=== PATIENT | female | born 1930 | race Caucasian/White ===

== ENCOUNTER 2016-10-08 17:45 | Observation (INO) | payer MEDICARE, OTHER ==
[~2016-10-08] VITALS: Ht 162.6 cm; Wt 60.0 kg
[~2016-10-08 17:45] MED LIST: HYDR-3533 PO; [UNRECOGNIZED DRUG - REMARK]; bp med
[2016-10-08] MEDS ORDERED: SODIUM CHLOR 0.9% 1000 ML INJ 1,000 ML IV SCH (18:11)
[2016-10-08] MEDS ORDERED: SODIUM CHLORIDE 0.9% FLUSH 5 ML FLUSH IVF PRN (18:15)
[2016-10-08 18:32] LABS: AUTOMATED NEUTROPHIL # 4.8 TH/MM3 (1.8-7.7); BASOPHIL # 0.1 TH/MM3 (0-0.2); BASOPHIL % 0.7 % (0.0-2.0); EOSINOPHIL # 0.2 TH/MM3 (0-0.4); EOSINOPHIL % 2.1 % (0.0-4.0); HEMATOCRIT 37.5 % (35.0-46.0); HEMO FLAGS DIFF FINAL; LYMPH % 28.9 % (9.0-44.0); LYMPHOCYTE # 2.3 TH/MM3 (1.0-4.8); MEAN CELL VOLUME 94.8 FL (80.0-100.0); MEAN CORPUSCULAR HEMOGLOBIN 31.6 PG (27.0-34.0); MEAN CORPUSCULAR HGB CONC 33.3 % (32.0-36.0); MONO % 7.3 % (0.0-8.0); PLATELET COUNT 363 TH/MM3 (150-450); RED BLOOD COUNT 3.95 MIL/MM3 (4.00-5.30); RED CELL DISTRIBUTION WIDTH 14.6 % (11.6-17.2); WHITE BLOOD COUNT 7.9 TH/MM3 (4.0-11.0)
[2016-10-08 18:41] VITALS: BP 120/64; PULSE 76; RESP 16; TEMP 98.7; O2SAT 98
[2016-10-08 18:43] LABS: APTT (PATIENT) 25.5 SEC (24.3-30.1); PROTHROMBIN TIME - PATIENT 10.5 SEC (9.8-11.6)
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
[2016-10-08 18:57] LABS: ALT (GPT) 34 U/L (10-53); ANION GAP 9 MEQ/L (5-15); AST (GOT) 12 U/L (15-37); BICARBONATE 21.9 MEQ/L (21.0-32.0); BLOOD UREA NITROGEN 45 MG/DL (7-18); CHLORIDE 111 MEQ/L (98-107); POTASSIUM 4.5 MEQ/L (3.5-5.1); SODIUM (NA) 142 MEQ/L (136-145)
[2016-10-08 19:00] LABS: ALKALINE PHOSPHATASE 129 U/L (45-117); GLOMERULAR FILTRATION RATE 40 ML/MIN (>89); TOTAL BILIRUBIN ADULT 0.3 MG/DL (0.2-1.0)
[2016-10-08 19:15] LABS: CREATINE KINASE 54 U/L (26-192)
--- NOTE | 2016-10-08 19:24 | RADRPT ---
EXAM DATE/TIME: 10/08/2016 19:03 [facility] COMPARISON: No previous studies available for comparison. INDICATIONS : Evaluate for obstruction and abdomen pain. MEDICAL HISTORY : None. SURGICAL HISTORY : Hysterectomy. section. Total right hip. ENCOUNTER: Initial ACUITY: 1 day PAIN SCORE: 8/10 LOCATION: Abdomen. FINDINGS: Supine view of the abdomen was performed. The abdominal bowel gas pattern is normal. No abnormal ma sses or organomegaly is seen. The 1 cm calcified gallstone overlies the right upper quadrant. Vascula r calcifications are seen involving the splenic artery. Granulomatous calcifications are seen involvi ng the spleen. Venous calcification overlie the pelvis. An osteopenic and scoliotic spine. Right hip prosthesis partially seen. CONCLUSION: Normal bowel gas pattern. Cholelithiasis. Radhames Menon Jr., MD on October 08, 2016 at 19:22 Board Certified Radiologist. This report was verified electronically.
--- NOTE | 2016-10-08 19:31 | RADRPT ---
EXAM DATE/TIME: 10/08/2016 19:13 [facility] COMPARISON: No previous studies available for comparison. INDICATIONS : Altered mental status. RADIATION DOSE: 56.35 CTDIvol (mGy) MEDICAL HISTORY : Hypertension. SURGICAL HISTORY : None. ENCOUNTER: Initial ACUITY: 1 day PAIN SCALE: Non-responsive LOCATION: cranial TECHNIQUE: Multiple contiguous axial images were obtained of the head. Using automated exposure control and adj ustment of the mA and/or kV according to patient size, radiation dose was kept as low as reasonably a chievable to obtain optimal diagnostic quality images. FINDINGS: CEREBRUM: Area of encephalomalacia involving the right frontal lobe. The ventricles are normal for age. No lyla dence of midline shift, mass lesion, hemorrhage or acute infarction. No extra-axial fluid collection s are seen. POSTERIOR FOSSA: The cerebellum and brainstem are intact. The 4th ventricle is midline. The cerebellopontine angle i s unremarkable. EXTRACRANIAL: The visualized portion of the orbits is intact. SKULL: The calvaria is intact. No evidence of skull fracture. CONCLUSION: 1. No acute intracranial abnormality. 2. Area of encephalomalacia involving the right frontal lobe. Radhames Menon Jr., MD on October 08, 2016 at 19:28 Board Certified Radiologist. This report was verified electronically.
[2016-10-08] MEDS ORDERED: SODIUM CHLOR 0.9% 1000 ML INJ 1,000 ML IV ONE (20:15)
[2016-10-08 20:25] VITALS: BP 150/69; PULSE 69; RESP 14; TEMP 98.9; O2SAT 99
[2016-10-08] MEDS ORDERED: CYCLOBENZAPRINE HCL 10 MG TAB PO ONE (20:45)
[2016-10-08] MEDS ORDERED: ACETAMINOPHEN 325 MG TAB PO ONE (20:45)
[2016-10-08] MEDS ORDERED: LORazepam 2 MG/ML VIAL ONE (21:33)
[2016-10-08] MEDS ORDERED: HALOPERIDOL LACTATE 5 MG/ML AMP ONE (21:33)
[2016-10-08 21:34] LABS: BACTERIA, URINE MOD /hpf; BLOOD, URINE MOD (NEG); COMMENT (UR) CATH-CULTURE IND; CULTURE IF INDICATED CATH CULTURE IND; GLUCOSE,URINE 70 mg/dL (NEG); KETONE, URINE NEG (NEG); NITRITE,URINE NEG (NEG); PH, URINE 5.5 (5.0-8.5); SQUAMOUS EPITHELIAL CELL URINE 2 /hpf (0-5); URINE COLOR YELLOW (YELLW/STRAW)
--- NOTE | 2016-10-08 21:34 | RADRPT ---
EXAM DATE/TIME: 10/08/2016 21:06 [facility] COMPARISON: No previous studies available for comparison. INDICATIONS : Left side chest and rib pain. MEDICAL HISTORY : None. SURGICAL HISTORY : None. ENCOUNTER: Initial ACUITY: 1 day PAIN SCORE: Non-responsive. LOCATION: Left chest FINDINGS: Multiple views of the chest show acute nondisplaced left posterior fifth, sixth, and seventh rib frac tures. There is parenchymal consolidation adjacent to the rib fractures. No pneumothorax or effusion. Right lung is clear. Heart is mildly enlarged. The scoliotic and degenerative spine is noted. CONCLUSION: 1. Acute left fifth through seventh rib fractures with adjacent pulmonary contusion/atelectasis. No p neumothorax. 2. Mild cardiomegaly. Radhames Menon Jr., MD on October 08, 2016 at 21:31 Board Certified Radiologist. This report was verified electronically.
[2016-10-08 21:35] LABS: AMPHETAMINE, URINE NEG (NEG); BARBITURATES, URINE NEG (NEG); COCAINE, URINE NEG (NEG)
[2016-10-08 21:43] VITALS: BP 144/66; PULSE 67; RESP 12; O2SAT 98
[2016-10-08] MEDS ORDERED: LORazepam 2 MG/ML VIAL IM ONE (22:15)
[2016-10-08] MEDS ORDERED: HALOPERIDOL LACTATE 5 MG/ML AMP IM ONE (22:15)
[2016-10-08 22:48] VITALS: BP 138/68; PULSE 66; RESP 12; O2SAT 97
[2016-10-08] MEDS ORDERED: SODIUM CHLORIDE 0.9% FLUSH 5 ML FLUSH FLUSH PRN (23:30)
[2016-10-08] MEDS ORDERED: NALOXONE HCL 0.4 MG/ML AMP IV PRN (23:30)
[2016-10-08] MEDS ORDERED: LORazepam 2 MG/ML VIAL IV PUSH PRN (23:30)
[2016-10-09] VITALS (7 sets, daily range): BP systolic 128–173; BP diastolic 60–98; PULSE 62–120; RESP 12–20; TEMP 98.6; O2SAT 93–100
[2016-10-09] MEDS ORDERED: ZIPRASIDONE HCL 20 MG CAP PO ONE (03:45)
[2016-10-09 04:09] LABS: AUTOMATED NEUTROPHIL # 7.4 TH/MM3 (1.8-7.7); BASOPHIL # 0.1 TH/MM3 (0-0.2); BASOPHIL % 0.5 % (0.0-2.0); EOSINOPHIL # 0.1 TH/MM3 (0-0.4); EOSINOPHIL % 1.2 % (0.0-4.0); HEMATOCRIT 38.3 % (35.0-46.0); HEMO FLAGS DIFF FINAL; LYMPH % 22.6 % (9.0-44.0); LYMPHOCYTE # 2.5 TH/MM3 (1.0-4.8); MEAN CELL VOLUME 92.5 FL (80.0-100.0); MEAN CORPUSCULAR HEMOGLOBIN 31.1 PG (27.0-34.0); MEAN CORPUSCULAR HGB CONC 33.7 % (32.0-36.0); MONO % 9.4 % (0.0-8.0); NEUT % 66.3 % (16.0-70.0); PLATELET COUNT 285 TH/MM3 (150-450); RED BLOOD COUNT 4.14 MIL/MM3 (4.00-5.30); RED CELL DISTRIBUTION WIDTH 14.3 % (11.6-17.2); WHITE BLOOD COUNT 11.2 TH/MM3 (4.0-11.0)
[2016-10-09 04:23] LABS: BICARBONATE 16.7 MEQ/L (21.0-32.0)
[2016-10-09] MEDS ORDERED: LORazepam 1 MG TAB PO PRN (09:00)
[2016-10-09] MEDS: QUEtiapine FUMARATE 25 MG TAB PO SCH ×3 (09:15→22:18)
[2016-10-09] MEDS: SODIUM CHLORIDE 0.9% FLUSH 5 ML FLUSH FLUSH SCH ×2 (09:17→11:44)
--- NOTE | 2016-10-09 09:33 | EKG ---
Date Performed: 10/08/2016 Time Performed: 21:40:28 PTAGE: 86 years EKG: BASELINE ARTIFACT PRESENT. SINUS TACHYCARDIA POSSIBLE LEFT ATRIAL ENLARGEMENT RIGHT BUNDLE BRANCH BLOCK Nonspecific T wave changes ABNORMAL ECG NO PREVIOUS TRACING DOCTOR: Dg Darling Interpretating Date/Time 10/09/2016 09:30:46
[2016-10-09] MEDS: HALOPERIDOL LACTATE 5 MG/ML AMP IM PRN ×2 (11:15→22:22)
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
[2016-10-09] MEDS ORDERED: cloNIDine HCL 0.1 MG TAB PO PRN (13:00)
[2016-10-09] MEDS ORDERED: LORazepam 2 MG/ML VIAL IV PUSH ONE (14:15)
[2016-10-09] MEDS: D5-1/2 NS + KCL 10 MEQ INJ 1,000 ML IV SCH ×2 (15:00→22:49)
[2016-10-09] MEDS: MORPHINE SULFATE 4 MG/ML INJ IV PUSH PRN (16:42)
[2016-10-09] MEDS: cefTRIAXone INJ 1,000 MG in SODIUM CHLORIDE 0.9% INJ 100 ML IV SCH (22:19)
[2016-10-10] VITALS (7 sets, daily range): BP systolic 130–152; BP diastolic 65–80; PULSE 53–80; RESP 16–18; TEMP 96.7–98.4; O2SAT 95–99
[2016-10-10] MEDS: SODIUM CHLORIDE 0.9% FLUSH 5 ML FLUSH FLUSH SCH ×2 (09:00→20:59)
[2016-10-10 09:03] LABS: MEAN CELL VOLUME 93.4 FL (80.0-100.0); MEAN CORPUSCULAR HEMOGLOBIN 31.9 PG (27.0-34.0); MEAN CORPUSCULAR HGB CONC 34.2 % (32.0-36.0); PLATELET COUNT 317 TH/MM3 (150-450); RED BLOOD COUNT 3.97 MIL/MM3 (4.00-5.30); RED CELL DISTRIBUTION WIDTH 14.5 % (11.6-17.2); REVIEW FLAG FINAL; WHITE BLOOD COUNT 9.2 TH/MM3 (4.0-11.0)
[2016-10-10] MEDS: QUEtiapine FUMARATE 25 MG TAB PO SCH ×2 (09:23→20:59)
[2016-10-10] MEDS: PANTOPRAZOLE SOD 40 MG DELAYED RELEASE TAB PO SCH (09:23)
[2016-10-10 09:31] LABS: BICARBONATE 22.1 MEQ/L (21.0-32.0); POTASSIUM 4.3 MEQ/L (3.5-5.1)
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
[2016-10-10] MEDS: D5-1/2 NS + KCL 10 MEQ INJ 1,000 ML IV SCH ×2 (13:55→21:00)
[2016-10-10] MEDS ORDERED: QUET1TAB7 PO (14:34)
[2016-10-10] MEDS ORDERED: CIPR-9 PO (14:34)
--- NOTE | 2016-10-10 14:35 | HHI.PR ---
Subjective Remarks Patient screaming "Help me". She needs a lot of redirection. Sitter at bedside. Only took a few bites of food. Still agitated. Urine culture grew pansensitive Enterobacter. Objective Vitals Vital Signs Date Time Temp Pulse Resp B/P Pulse Ox O2 Delivery O2 Flow Rate FiO2 10/10/16 11:54 76 18 130/66 95 10/10/16 08:48 96.7 62 18 152/80 98 10/10/16 03:50 98.1 56 18 144/65 99 10/10/16 03:07 53 10/10/16 00:15 97.4 75 18 143/78 97 10/09/16 15:30 98.6 104 18 146/78 93 Result Diagram: 10/10/16 0830 10/10/16 0830 Imaging Last Impressions Head CT 10/08/16 1811 Signed Impressions: Service Date/Time: Saturday, October 08, 2016 19:13 - CONCLUSION: 1. No acute intracranial abnormality. 2. Area of encephalomalacia involving the right frontal lobe. Radhames Menon Jr., MD Chest X-Ray 10/08/16 0000 Signed Impressions: Service Date/Time: Saturday, October 08, 2016 21:06 - CONCLUSION: 1. Acute left fifth through seventh rib fractures with adjacent pulmonary contusion/atelectasis. No pneumothorax. 2. Mild cardiomegaly. Radhames Menon Jr., MD Abdomen X-Ray 10/08/16 0000 Signed Impressions: Service Date/Time: Saturday, October 08, 2016 19:03 - CONCLUSION: Normal bowel gas pattern. Cholelithiasis. Radhames Menon Jr., MD Objective Remarks GENERAL: Elderly female in no acute distress. Agitated at times. CARDIOVASCULAR: Regular rate and rhythm without murmurs, gallops, or rubs. RESPIRATORY: Clear to auscultation. Breath sounds equal bilaterally. No wheezes , rales, or rhonchi. GASTROINTESTINAL: Abdomen soft, non-tender, nondistended. Normal active bowel sounds MUSCULOSKELETAL: Extremities without clubbing, cyanosis, or edema. NEURO: Alert, confused. Difficult to understand speech. A/P Problem List: (1) Aggressive behavior ICD Code: R45.89 Status: Acute (2) Memory impairment of gradual onset ICD Code: R41.3 Status: Acute (3) Agitation ICD Code: R45.1 Status: Acute (4) Pulmonary contusion ICD Code: S27.329A Status: Acute (5) Rib fractures ICD Code: S22.39XA Status: Acute (6) Acute renal insufficiency ICD Code: N28.9 Status: Acute (7) Mood disorder ICD Code: F39 Status: Acute (8) Urinary tract infection ICD Code: N39.0 Status: Acute Assessment and Plan 86-year-old admitted under Moreno act for aggressive behavior. Based on discussion with her roommate, she has had declining memory and worsening aggressive behavior over the past year. Aggressive behavior and memory decline: This is probably dementia with behavioral symptoms given the reported course. Head CT revealed No acute intracranial abnormality. Area of encephalomalacia involving the right frontal lobe. Patient also has a UTI which can contribute to the confusion. - Psychiatry following who recommends inpatient psychiatric admission at this time. Agree and will DC patient to psych today. UTI: Urine grew pansensitive Enterobacter. She received a dose of Vancomycin. Will DC on Cipro for 7 days. Acute renal insufficiency: Likely prerenal azotemia from dehydration. Improved and stabilized. Encourage staff to continue to encourage oral hydration. Rib fractures/pulmonary contusion: Patient has been having recurrent falls per her roommate. She was reportedly in rehabilitation 3 weeks ago related to rib fractures and falls. She does not appear to be in pain currently. Has not required pain medications. Hypertension: Per Review of the records. It seems that she was on propranolol and an angiotensin receptor chai but its unclear if she was taking it at home. BP acceptable. Continue to monitor. Discharge Planning DC to psych facility today. Problem Qualifiers (1) Pulmonary contusion: Qualified Code: S27.321A - Contusion of left lung, initial encounter (2) Rib fractures: Qualified Code: S22.42XA - Closed fracture of multiple ribs of left side, initial encounter (3) Urinary tract infection: Qualified Code: N39.0 - Urinary tract infection with hematuria, site unspecified Joselyn Morin MD Oct 10, 2016 14:35
[2016-10-10] MEDS: HALOPERIDOL LACTATE 5 MG/ML AMP IM PRN (16:19)
[2016-10-10] MEDS: cefTRIAXone INJ 1,000 MG in SODIUM CHLORIDE 0.9% INJ 100 ML IV SCH (21:00)
[2016-10-11] MEDS: MORPHINE SULFATE 4 MG/ML INJ IV PUSH PRN
[2016-10-11] MEDS: HALOPERIDOL LACTATE 5 MG/ML AMP IM PRN (00:17)
[2016-10-11 00:41] VITALS: BP 138/68; PULSE 84; RESP 16; TEMP 98.4; O2SAT 97
[2016-10-11 04:00] VITALS: BP 134/68; PULSE 67; RESP 18; TEMP 98.4; O2SAT 97
[2016-10-11] MEDS: PANTOPRAZOLE SOD 40 MG DELAYED RELEASE TAB PO SCH (08:02)
[2016-10-11] MEDS: QUEtiapine FUMARATE 25 MG TAB PO SCH (08:02)
[2016-10-11] MEDS: SODIUM CHLORIDE 0.9% FLUSH 5 ML FLUSH FLUSH SCH (08:03)
[2016-10-11 08:28] VITALS: BP 148/80; PULSE 86; RESP 18; TEMP 97.9; O2SAT 96
== END 2016-10-11 10:58 ==
LOC: NEPA 17:45 → NEDA 22:47 → NEDH 10-09 02:47 → NEPGCP 10-09 15:25
PROVIDERS: ADMIT Family Medicine; ATTEND Family Medicine
DX: S27.321A Contusion of lung, unilateral, initial encounter (principal); S22.42XA Multiple fractures of ribs, left side, initial encounter for closed fracture; F03.91 Unspecified dementia, unspecified severity, with behavioral disturbance; F05 Delirium due to known physiological condition; J98.11 Atelectasis; E86.0 Dehydration; I11.9 Hypertensive heart disease without heart failure; R31.9 Hematuria, unspecified; N39.0 Urinary tract infection, site not specified; B96.89 Other specified bacterial agents as the cause of diseases classified elsewhere; N28.9 Disorder of kidney and ureter, unspecified; F41.9 Anxiety disorder, unspecified; F39 Unspecified mood [affective] disorder; G93.89 Other specified disorders of brain; K59.00 Constipation, unspecified; M54.9 Dorsalgia, unspecified; K80.20 Calculus of gallbladder without cholecystitis without obstruction; R29.6 Repeated falls; Z91.19 Patient's noncompliance with other medical treatment and regimen; W19.XXXA Unspecified fall, initial encounter
CPT/HCPCS: 70450; 71020; 74000; 80048; 80053; 80307; 81001; 82140; 82550; 83605; 85025; 85027; 85610; 85730; 87077; 87086; 87186; 93005; 96360; 96372; 99285; G0378; J0696; J1630; J2060; J2270; J3480; J7030; 80320

== ENCOUNTER 2016-10-11 11:31 | Inpatient (IN) | payer MEDICARE, OTHER ==
[~2016-10-11 11:31] MED LIST changes: +CIPR-9 PO; -HYDR-3533 PO; +QUET1TAB7 PO; -[UNRECOGNIZED DRUG - REMARK]; -bp med
[2016-10-11] MEDS ORDERED: HALOPERIDOL LACTATE 5 MG/ML AMP IM PRN (12:45)
[2016-10-11] MEDS ORDERED: MAGNESIUM HYDROXIDE SUSP 30 ML CUP PO PRN (12:45)
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
[2016-10-11] MEDS ORDERED: diphenhydrAMINE HCL 50 MG/ML VIAL ONE (13:08)
[2016-10-11] MEDS ORDERED: diphenhydrAMINE HCL 50 MG/ML VIAL IM ONE (14:00)
[2016-10-11] MEDS ORDERED: HALOPERIDOL LACTATE 5 MG/ML AMP IM ONE (14:00)
[2016-10-11] MEDS: ACETAMINOPHEN 325 MG TAB PO PRN (16:06)
[2016-10-11 19:13] VITALS: BP 126/67; PULSE 81; RESP 18; TEMP 97.6; O2SAT 98
[2016-10-11] MEDS: QUEtiapine FUMARATE 25 MG TAB PO SCH ×2 (21:00→21:48)
[2016-10-12] MEDS: ACETAMINOPHEN 325 MG TAB PO PRN ×3 (02:00→22:30)
[2016-10-12] MEDS: LORazepam 1 MG TAB PO PRN (02:00)
[2016-10-12 06:03] VITALS: BP 145/79; PULSE 77; RESP 18; TEMP 97.9; O2SAT 96
[2016-10-12 09:03] LABS: BICARBONATE 28.3 MEQ/L (21.0-32.0); POTASSIUM 4.3 MEQ/L (3.5-5.1)
[2016-10-12 09:32] LABS: HDL CHOLESTEROL 61.7 MG/DL (40.0-60.0); LDL CHOLESTEROL 76 MG/DL (0-99)
[2016-10-12] MEDS: QUEtiapine FUMARATE 25 MG TAB PO SCH ×2 (10:12→21:46)
[2016-10-12 12:55] LABS: HEMOGLOBIN A1a 1.3 %; HEMOGLOBIN A1b 0.8 %; HEMOGLOBIN Ao 83.2 %; HEMOGLOBIN F 1.4 %; HEMOGLOBIN LA1C 2.2 %; HEMOGLOBIN P3 5.6 %
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
[2016-10-12 20:11] VITALS: BP 141/74; PULSE 66; RESP 18; TEMP 97.6; O2SAT 95
[2016-10-13] MEDS: ACETAMINOPHEN 325 MG TAB PO PRN ×2 (04:49→09:09)
[2016-10-13 06:53] VITALS: BP 140/70; PULSE 87; RESP 18; TEMP 97.5; O2SAT 94
[2016-10-13 07:54] LABS: ALKALINE PHOSPHATASE 120 U/L (45-117); ALT (GPT) 30 U/L (10-53); ANION GAP 6 MEQ/L (5-15); AST (GOT) 26 U/L (15-37); BICARBONATE 25.6 MEQ/L (21.0-32.0); BLOOD UREA NITROGEN 31 MG/DL (7-18); CHLORIDE 106 MEQ/L (98-107); GLOMERULAR FILTRATION RATE 45 ML/MIN (>89); POTASSIUM 4.3 MEQ/L (3.5-5.1); SODIUM (NA) 138 MEQ/L (136-145); TOTAL BILIRUBIN ADULT 0.5 MG/DL (0.2-1.0)
[2016-10-13] MEDS: CIPROFLOXACIN 250 MG TAB PO SCH ×2 (09:00→20:37)
[2016-10-13] MEDS: LORazepam 1 MG TAB PO PRN (09:09)
[2016-10-13] MEDS: QUEtiapine FUMARATE 25 MG TAB PO SCH ×2 (09:09→20:37)
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
[2016-10-13] MEDS: oxyCODONE/ACETAMINOPHEN 5 MG/325 MG TAB PO PRN ×2 (12:59→20:38)
--- NOTE | 2016-10-13 14:03 | HHI.PYPN ---
Subjective Remarks Patient was seen and case discussed with nursing. Patient was evaluated by medicine and they added Percocet for pain management. Medical team continues to follow her case and mistreating her room fractures here in the psychiatric unit. She is alert and oriented 3. Says the pain is getting better. She was started on an antibiotic by medicine. appear to be in pain during our interview. She is combative at night per nursing. Denies auditory visual hallucinations Objective Alert: Yes [place]: Person, Place, Date Mood: Anxious Affect: Restricted Memory Intact: Immediate (poor) Hallucinations: Other Delusions: No Delusion Type: Other Suicidal: Ideation (denies) Homicidal: Ideation (denies) Insight/Judgement Poor Labs Test 10/13/16 06:50 Sodium Level 138 MEQ/L Potassium Level 4.3 MEQ/L Chloride Level 106 MEQ/L Carbon Dioxide Level 25.6 MEQ/L Anion Gap 6 MEQ/L Blood Urea Nitrogen 31 MG/DL Creatinine 1.15 MG/DL Estimat Glomerular Filtration 45 ML/MIN Rate Random Glucose 138 MG/DL Calcium Level 9.3 MG/DL Total Bilirubin 0.5 MG/DL Aspartate Amino Transf 26 U/L (AST/SGOT) Alanine Aminotransferase 30 U/L (ALT/SGPT) Alkaline Phosphatase 120 U/L Total Protein 7.3 GM/DL Albumin 3.4 GM/DL Vitals/IOs Vital Signs Date Time Temp Pulse Resp B/P Pulse Ox O2 Delivery O2 Flow Rate FiO2 10/13/16 06:53 97.5 87 18 140/70 94 Intake and Output 10/12/16 10/12/16 10/13/16 08:00 16:00 00:00 Intake Total 240 ml 1470 ml Balance 240 ml 1470 ml Assessment & Plan Problem List: (1) Dementia with behavioral disturbance ICD Code: F03.91 Assessment & Plan Continue current treatment plan Justification for Cont. Inpt. Patient will decompensate outside of a less restrictive setting Ray Davis DO Oct 13, 2016 14:03
[2016-10-13 19:48] VITALS: BP 139/69; PULSE 75; RESP 18; TEMP 98.6; O2SAT 97
[2016-10-14 06:09] VITALS: BP 165/77; PULSE 74; RESP 16; TEMP 97.1; O2SAT 94
[2016-10-14] MEDS: QUEtiapine FUMARATE 25 MG TAB PO SCH ×2 (09:12→20:53)
[2016-10-14] MEDS: CIPROFLOXACIN 250 MG TAB PO SCH ×2 (09:12→20:53)
[2016-10-14] MEDS: ACETAMINOPHEN 325 MG TAB PO PRN ×2 (09:30→20:54)
--- NOTE | 2016-10-14 11:24 | HHI.PR ---
Subjective Remarks Follow-up hypertension, pain post rib fractures. Patient sitting in day room. She noted acute distress. Reports minimal left- sided pain. Offers no medical complaints at this time. Denies shortness of breath nausea vomiting diarrhea constipation fevers or chills Alert and oriented to person only Objective Vitals Vital Signs Date Time Temp Pulse Resp B/P Pulse Ox O2 Delivery O2 Flow Rate FiO2 10/14/16 06:09 97.1 74 16 165/77 94 10/13/16 19:48 98.6 75 18 139/69 97 I/O 10/13/16 10/13/16 10/13/16 10/14/16 10/14/16 10/14/16 07:00 15:00 23:00 07:00 15:00 23:00 Intake Total 960 ml 150 ml 480 ml Balance 960 ml 150 ml 480 ml Intake Oral 960 ml 150 ml 480 ml # Voids 6 3 # Bowel Movements 1 Result Diagram: 10/13/16 0650 Objective Remarks GENERAL: Elderly female. No acute distress. A&O to person only HEAD: Atraumatic. Normocephalic. No temporal or scalp tenderness. EYES: EOMI CARDIOVASCULAR: Regular rate and rhythm. No significant murmur appreciated. RESPIRATORY: Decreased air movement likely secondary to effort GASTROINTESTINAL: Abdomen soft, non-tender, nondistended. MUSCULOSKELETAL: Extremities without clubbing, cyanosis, or edema. NEUROLOGICAL: A&O to person only. confused difficult to assess A/P Assessment and Plan 86-year-old admitted to inpatient psychiatric center. Patient does have pain from fractured right ribs 5 through 7 and urinary tract infection. Aggressive behavior and memory decline: dementia with behavioral symptoms- Head CT revealed No acute intracranial abnormality. Area of encephalomalacia involving the right frontal lobe. Management per psychiatric team UTI: Urine culture positive for Enterobacter cloacae received IV Rocephin in patient hospital recommend continue Cipro 7 days total til 2/5 Rib fractures/pulmonary contusion: Patient has been having recurrent falls per her roommate. She was reportedly in rehabilitation 3 weeks ago related to rib fractures and falls. She does not appear to be in pain currently. Tylenol as needed for pain 1-4, will decrease Percocet 5/325mg to one half tablet Q6hrs PRN for pain 5-10 Physical therapy consulted Hypertension: Per Review of the records. Blood pressure within acceptable limits for age. Will continue to monitor BP trend New onset DM- hemoglobin A1c 6.5 Check Accu-Cheks before meals at bedtime with sliding scale insulin coverage x 24-48 hrs DVT PPx: Early Ambulation Discussed plan of care with patient and RN Written by Sachi Escoto, acting as scribe for Dr. Pollock on 10/14/16 at 11:23. The documentation accurately reflects the work performed [id number] by me on at 1123 Sachi Escoto Oct 14, 2016 11:23 Kelvin Pollock MD Oct 14, 2016 14:46
[2016-10-14] MEDS ORDERED: PILL SPLITTER OTHER PRN (11:30)
[2016-10-14] MEDS ORDERED: GLUCAGON 1 MG/ML VIAL OTHER PRN (11:30)
[2016-10-14] MEDS ORDERED: DEXTROSE 50% IN WATER 50 ML VIAL(D50) IV PUSH PRN (11:30)
[2016-10-14] MEDS: ALUMINUM/MAGNESIUM/SIMETH 30 ML CUP PO PRN (12:13)
[2016-10-14] MEDS: oxyCODONE/ACETAMINOPHEN 5 MG/325 MG TAB PO PRN ×2 (15:30→23:00)
--- NOTE | 2016-10-14 16:40 | HHI.PYPN ---
Subjective Remarks Patient discussed with treatment team, chart review, seen on unit. Patient pleasantly confused all 4 spheres at times and cisternae. Compliant medications. For now continue observation monitoring her fractured left ribs. Review of Systems Except as stated in HPI: all other systems reviewed are Neg Objective Alert: Yes [place]: Person, Place, Date Mood: Anxious Affect: Restricted Memory Intact: Immediate (poor) Hallucinations: Other Delusions: No Delusion Type: Other Suicidal: Ideation (denies) Homicidal: Ideation (denies) Insight/Judgement Very poor Vitals/IOs Vital Signs Date Time Temp Pulse Resp B/P Pulse Ox O2 Delivery O2 Flow Rate FiO2 10/14/16 06:09 97.1 74 16 165/77 94 Intake and Output 10/13/16 10/13/16 10/14/16 08:00 16:00 00:00 Intake Total 960 ml 630 ml Balance 960 ml 630 ml Assessment & Plan Problem List: (1) Dementia with behavioral disturbance ICD Code: F03.91 Assessment & Plan Estimated LOS: days patient confused demented the pleasant with me. We'll continue further observe see if any sundowning develops Justification for Cont. Inpt. At this time patient was significantly decompensated placed on the lower level of care Discharge Planning To be determined Request HC Surrog/Guard Advoc?: Yes Chepe Dickey MD Oct 14, 2016 16:40
[2016-10-14] MEDS: INSULIN ASPART SUPPLEMENTAL SCALE SQ SCH ×2 (16:52→21:00)
[2016-10-14 19:45] VITALS: BP 142/65; PULSE 78; RESP 18; TEMP 97.2; O2SAT 94
[2016-10-15 05:36] VITALS: BP 89/60; PULSE 73; RESP 15; TEMP 98.1; O2SAT 96
[2016-10-15] MEDS: INSULIN ASPART SUPPLEMENTAL SCALE SQ SCH (06:13)
[2016-10-15 09:15] VITALS: BP 138/77; PULSE 77
[2016-10-15] MEDS: CIPROFLOXACIN 250 MG TAB PO SCH ×2 (09:16→21:34)
[2016-10-15] MEDS: QUEtiapine FUMARATE 25 MG TAB PO SCH ×2 (09:16→17:20)
--- NOTE | 2016-10-15 12:47 | HHI.PYPN ---
Subjective Remarks Patient seen in room with nurse Heather, chart review, patient calm pleasant with us somewhat diffusely confused. Is aware of her fractured ribs. Is able to take a deep breath without much discomfort. Patient was up for breakfast and returned to bed, and is somewhat chilly on the unit. Patient compliant medications for now continue treatment staff notices some sundowning with patient performing somewhat more agitated will change Seroquel to noon and 6 PM Review of Systems Except as stated in HPI: all other systems reviewed are Neg Objective Alert: Yes [place]: Person, Place, Date Mood: Anxious Affect: Restricted Memory Intact: Immediate (poor) Hallucinations: Other Delusions: No Delusion Type: Other Suicidal: Ideation (denies) Homicidal: Ideation (denies) Insight/Judgement Poor Vitals/IOs Vital Signs Date Time Temp Pulse Resp B/P Pulse Ox O2 Delivery O2 Flow Rate FiO2 10/15/16 09:15 77 138/77 10/15/16 05:36 98.1 15 96 Intake and Output 10/14/16 10/14/16 10/15/16 08:00 16:00 00:00 Intake Total 0 ml 720 ml 1020 ml Balance 0 ml 720 ml 1020 ml Assessment & Plan Problem List: (1) Dementia with behavioral disturbance ICD Code: F03.91 Assessment & Plan Estimated LOS: days patient continue somewhat diffusely confused though, pleasant coping well with her fractured ribs see medication adjustment above Justification for Cont. Inpt. At this time patient would significantly decompensate if placed in the lower level of care Discharge Planning To be determined Request HC Surrog/Guard Advoc?: Yes Chepe Dickey MD Oct 15, 2016 12:47
[2016-10-15] MEDS: ALUMINUM/MAGNESIUM/SIMETH 30 ML CUP PO PRN (15:09)
--- NOTE | 2016-10-15 15:53 | HHI.PR ---
Addendum to Inpatient Note Additional Information medically stable will sign off Rayneo,Kelvin Gil MD Oct 15, 2016 15:53
[2016-10-15 19:00] VITALS: BP 150/78; PULSE 80; RESP 15; TEMP 97.7; O2SAT 96
[2016-10-15] MEDS: oxyCODONE/ACETAMINOPHEN 5 MG/325 MG TAB PO PRN (21:43)
[2016-10-16] MEDS: oxyCODONE/ACETAMINOPHEN 5 MG/325 MG TAB PO PRN ×2 (05:05→21:31)
[2016-10-16 06:23] VITALS: BP 168/77; PULSE 78; RESP 15; TEMP 97.4; O2SAT 94
[2016-10-16] MEDS: CIPROFLOXACIN 250 MG TAB PO SCH ×2 (08:39→21:20)
--- NOTE | 2016-10-16 11:33 | HHI.PYPN ---
Subjective Remarks Patient seen in day room with nurse Deb and family practice resident Delphine, patient pleasantly confused at this time showing no behavior problems however review of nursing notes shows patient had significant behavior problems overnight swinging at spitting at staff meeting Haldol injection along with the pain medication. However patient is only had one dose of Seroquel so far. We' ll continue those dosages for another 24-hour observe behaviors tonight with consideration of possibly getting an at bedtime dose of Seroquel Review of Systems Except as stated in HPI: all other systems reviewed are Neg Objective Alert: Yes [place]: Person, Place, Date Mood: Anxious Affect: Restricted Memory Intact: Immediate (poor) Hallucinations: Other Delusions: No Delusion Type: Other Suicidal: Ideation (denies) Homicidal: Ideation (denies) Insight/Judgement Very poor Vitals/IOs Vital Signs Date Time Temp Pulse Resp B/P Pulse Ox O2 Delivery O2 Flow Rate FiO2 10/16/16 06:23 97.4 78 15 168/77 94 Intake and Output 10/15/16 10/15/16 10/16/16 08:00 16:00 00:00 Intake Total 120 ml 480 ml 600 ml Balance 120 ml 480 ml 600 ml Assessment & Plan Problem List: (1) Dementia with behavioral disturbance ICD Code: F03.91 Assessment & Plan Estimated LOS: days patient continues demented confused with some significant late sundowning last night. For now we will continue medication no change need to observe response to schedule Seroquel Justification for Cont. Inpt. At this time patient would significantly decompensate if placed at a lower level of care Discharge Planning To be determined Request HC Surrog/Guard Advoc?: Yes Chepe Dickey MD Oct 16, 2016 11:33
[2016-10-16] MEDS: QUEtiapine FUMARATE 25 MG TAB PO SCH ×2 (11:51→17:18)
[2016-10-16 19:21] VITALS: BP 181/75; PULSE 91; RESP 16; TEMP 98.2; O2SAT 94
[2016-10-17] MEDS: ACETAMINOPHEN 325 MG TAB PO PRN (00:08)
[2016-10-17 05:39] VITALS: BP 159/77; PULSE 69; RESP 16; TEMP 97.2
[2016-10-17] MEDS: CIPROFLOXACIN 250 MG TAB PO SCH ×2 (08:35→20:06)
[2016-10-17] MEDS: QUEtiapine FUMARATE 25 MG TAB PO SCH ×2 (11:29→17:16)
--- NOTE | 2016-10-17 12:07 | HHI.PYPN ---
Subjective Remarks Patient seen in [place] [address] retained by Judge Scott with guardian advocate appointed. Patient was calm pleasant with Judge Scott though continued diffusely confused. It appears patient had a better night last night without the behaviors noted the night prior. Patient compliant with medications. For now continue treatment counselor states she has talked with patient's common- law of 40+ years. He states now that he is not to her and does not want her back. Placement may become an issue Review of Systems Except as stated in HPI: all other systems reviewed are Neg Objective Alert: Yes [place]: Person, Place, Date Mood: Anxious Affect: Restricted Memory Intact: Immediate (poor) Hallucinations: Other Delusions: No Delusion Type: Other Suicidal: Ideation (denies) Homicidal: Ideation (denies) Insight/Judgement Poor Vitals/IOs Vital Signs Date Time Temp Pulse Resp B/P Pulse Ox O2 Delivery O2 Flow Rate FiO2 10/17/16 05:39 97.2 69 16 159/77 10/16/16 19:21 94 Intake and Output 10/16/16 10/16/16 10/17/16 08:00 16:00 00:00 Intake Total 120 ml 1140 ml Balance 120 ml 1140 ml Assessment & Plan Problem List: (1) Dementia with behavioral disturbance ICD Code: F03.91 Assessment & Plan Estimated LOS: days patient continues demented confused pleasant through most of the day but showing some sundowning behaviors, compliant medication Justification for Cont. Inpt. At this time patient would significantly decompensate if placed in a lower level of care Discharge Planning To be determined Request HC Surrog/Guard Advoc?: Yes Chepe Dickey MD Oct 17, 2016 12:07
[2016-10-17 18:41] VITALS: BP 157/77; PULSE 78; RESP 16; TEMP 97.9; O2SAT 97
[2016-10-18 05:10] VITALS: BP 166/75; PULSE 80; RESP 18
[2016-10-18] MEDS: CIPROFLOXACIN 250 MG TAB PO SCH ×2 (10:06→20:56)
[2016-10-18] MEDS: oxyCODONE/ACETAMINOPHEN 5 MG/325 MG TAB PO PRN ×2 (10:07→18:16)
[2016-10-18] MEDS: QUEtiapine FUMARATE 25 MG TAB PO SCH ×2 (12:00→18:16)
--- NOTE | 2016-10-18 13:48 | HHI.PYPN ---
Subjective Remarks Patient seen in her room with floor staff, patient somewhat sad issues discussed her believe that her is abandoning her she became more tearful and upset with that. Though she did respond positively to the attention of our nurse Madison. Will add Lexapro 10 mg daily to her regimen I feel this is the possible start of a depressive episode. Otherwise continue treatment no change Review of Systems Except as stated in HPI: all other systems reviewed are Neg Objective Alert: Yes [place]: Person, Place, Date Mood: Anxious Affect: Restricted Memory Intact: Immediate (poor) Hallucinations: Other Delusions: No Delusion Type: Other Suicidal: Ideation (denies) Homicidal: Ideation (denies) Insight/Judgement Poor Vitals/IOs Vital Signs Date Time Temp Pulse Resp B/P Pulse Ox O2 Delivery O2 Flow Rate FiO2 10/18/16 05:10 80 18 166/75 10/17/16 18:41 97.9 97 Intake and Output 10/17/16 10/17/16 10/18/16 08:00 16:00 00:00 Intake Total 120 ml 2760 ml Balance 120 ml 2760 ml Assessment & Plan Problem List: (1) Dementia with behavioral disturbance ICD Code: F03.91 Assessment & Plan Estimated LOS: days patient continues confused demented, though showing some more signs of depression. Will add Lexapro to the regimen Justification for Cont. Inpt. At this time the patient would significantly decompensate if placed in the lower level of care Discharge Planning To be determined Request HC Surrog/Guard Advoc?: Yes Chepe Dickey MD Oct 18, 2016 13:48
[2016-10-18 19:31] VITALS: BP 145/76; PULSE 85; RESP 18; TEMP 97.8; O2SAT 96
[2016-10-19 05:57] VITALS: BP 138/65; PULSE 80; RESP 16; TEMP 98.8; O2SAT 98
[2016-10-19] MEDS: CIPROFLOXACIN 250 MG TAB PO SCH ×2 (08:59→21:35)
[2016-10-19] MEDS: QUEtiapine FUMARATE 25 MG TAB PO SCH ×2 (12:52→18:10)
--- NOTE | 2016-10-19 13:44 | HHI.PYPN ---
Subjective Remarks Pt seen and discussed with staff. Staff report that pt exhibits agitation intermittently but has been better controlled today. Pt reports mood is better today. No SI/HI. Review of Systems Psychiatric: COMPLAINS OF: Depression Objective Alert: Yes [place]: Person, Place, Date Mood: Anxious Affect: Restricted Memory Intact: Immediate (poor) Hallucinations: Other Delusions: No Delusion Type: Other Suicidal: Ideation (denies) Homicidal: Ideation (denies) Insight/Judgement poor Vitals/IOs Vital Signs Date Time Temp Pulse Resp B/P Pulse Ox O2 Delivery O2 Flow Rate FiO2 10/19/16 05:57 98.8 80 16 138/65 98 Intake and Output 10/18/16 10/18/16 10/19/16 08:00 16:00 00:00 Intake Total 1440 ml 720 ml Balance 1440 ml 720 ml Assessment & Plan Problem List: (1) Dementia with behavioral disturbance ICD Code: F03.91 Assessment & Plan Continue current tx plan. Estimated LOS: days Justification for Cont. Inpt. impairments in safety Request HC Surrog/Guard Advoc?: Yes Khushboo Oropeza MD Oct 19, 2016 13:44
[2016-10-19] MEDS: ESCITALOPRAM OXALATE 10 MG TAB PO SCH (18:11)
[2016-10-19 19:00] VITALS: BP 167/92; PULSE 79; RESP 17; TEMP 97.8; O2SAT 98
[2016-10-20 05:10] VITALS: BP 189/73; PULSE 57; RESP 16; TEMP 97.7; O2SAT 93
[2016-10-20] MEDS: ESCITALOPRAM OXALATE 10 MG TAB PO SCH (09:08)
[2016-10-20] MEDS: ALUMINUM/MAGNESIUM/SIMETH 30 ML CUP PO PRN (13:11)
[2016-10-20] MEDS: QUEtiapine FUMARATE 25 MG TAB PO SCH ×2 (13:11→18:22)
--- NOTE | 2016-10-20 15:53 | HHI.PYPN ---
Subjective Remarks Pt seen and discussed with staff. Pt has been in good behavioral control today and mood lability has decreased. Compliant with medications. No aggression. Objective Alert: Yes [place]: Person, Place Mood: Anxious Affect: Restricted Memory Intact: Comment (poor) Hallucinations: Other (none) Delusions: No Delusion Type: Other Suicidal: Ideation (denies) Homicidal: Ideation (denies) Insight/Judgement poor Vitals/IOs Vital Signs Date Time Temp Pulse Resp B/P Pulse Ox O2 Delivery O2 Flow Rate FiO2 10/20/16 05:10 97.7 57 16 189/73 93 Intake and Output 10/19/16 10/19/16 10/20/16 08:00 16:00 00:00 Intake Total 240 ml 600 ml 600 ml Balance 240 ml 600 ml 600 ml Assessment & Plan Problem List: (1) Dementia with behavioral disturbance ICD Code: F03.91 Assessment & Plan Continue current tx plan. Estimated LOS: days Justification for Cont. Inpt. impairments in self care Request HC Surrog/Guard Advoc?: Yes Khushboo Oropeza MD Oct 20, 2016 15:53
[2016-10-20 19:32] VITALS: BP 130/63; PULSE 62; RESP 18; TEMP 98.7
[2016-10-21 05:15] VITALS: BP 160/70; PULSE 63; RESP 18; TEMP 98; O2SAT 97
[2016-10-21] MEDS: ESCITALOPRAM OXALATE 10 MG TAB PO SCH (09:20)
[2016-10-21] MEDS: QUEtiapine FUMARATE 25 MG TAB PO SCH ×2 (12:00→18:13)
--- NOTE | 2016-10-21 16:01 | HHI.PYPN ---
Subjective Remarks Patient discussed with treatment team and medical student Jessica, chart reviewed, patient seen on unit. Patient continues confused and disorganized but pleasant today this behavior problems. Compliant medications Review of Systems Except as stated in HPI: all other systems reviewed are Neg Objective Alert: Yes [place]: Person, Place Mood: Anxious Affect: Restricted Memory Intact: Comment (poor) Hallucinations: Other (none) Delusions: No Delusion Type: Other Suicidal: Ideation (denies) Homicidal: Ideation (denies) Insight/Judgement Very poor Vitals/IOs Vital Signs Date Time Temp Pulse Resp B/P Pulse Ox O2 Delivery O2 Flow Rate FiO2 10/21/16 05:15 98.0 63 18 160/70 97 Intake and Output 10/20/16 10/20/16 10/21/16 08:00 16:00 00:00 Intake Total 480 ml 960 ml Balance 480 ml 960 ml Assessment & Plan Problem List: (1) Dementia with behavioral disturbance ICD Code: F03.91 Assessment & Plan Estimated LOS: days patient continues confused demented though somewhat calmer with her behaviors, compliant medications Justification for Cont. Inpt. At this time patient will decompensate if placed in the lower level of care Discharge Planning To be determined Request HC Surrog/Guard Advoc?: Yes Chepe Dickey MD Oct 21, 2016 16:01
[2016-10-21 21:28] VITALS: BP 130/59; PULSE 60; RESP 18; TEMP 97.3; O2SAT 97
[2016-10-22] MEDS: ACETAMINOPHEN 325 MG TAB PO PRN (02:01)
[2016-10-22 06:11] VITALS: BP 185/80; PULSE 61; RESP 18; TEMP 98.9; O2SAT 96
[2016-10-22] MEDS: ESCITALOPRAM OXALATE 10 MG TAB PO SCH (08:47)
[2016-10-22] MEDS: QUEtiapine FUMARATE 25 MG TAB PO SCH ×2 (12:39→18:10)
--- NOTE | 2016-10-22 15:55 | HHI.PYPN ---
Subjective Remarks Patient seen in her room with nurse Kaylyn and medical student Leigh, chart reviewed, patient calm pleasant appropriately reactive with good affect. Continues remain somewhat diffusely confused. Compliant medications. Showing some mild distress have not having communication with her "" of 47 years Review of Systems Except as stated in HPI: all other systems reviewed are Neg Objective Alert: Yes [place]: Person, Place Mood: Anxious Affect: Restricted Memory Intact: Comment (poor) Hallucinations: Other (none) Delusions: No Delusion Type: Other Suicidal: Ideation (denies) Homicidal: Ideation (denies) Insight/Judgement Poor Vitals/IOs Vital Signs Date Time Temp Pulse Resp B/P Pulse Ox O2 Delivery O2 Flow Rate FiO2 10/22/16 06:11 98.9 61 18 185/80 96 Intake and Output 10/21/16 10/21/16 10/22/16 08:00 16:00 00:00 Intake Total 960 ml 600 ml Balance 960 ml 600 ml Assessment & Plan Problem List: (1) Dementia with behavioral disturbance ICD Code: F03.91 Assessment & Plan Estimated LOS: days patient continues confused disoriented but no behavioral problems at this time. Compliant medications. For now continue treatment Justification for Cont. Inpt. This time patient will decompensate if placed a lower level of care Discharge Planning To be determined Request HC Surrog/Guard Advoc?: Yes Chepe Dickey MD Oct 22, 2016 15:55
[2016-10-22 19:33] VITALS: BP 138/64; PULSE 77; RESP 18; TEMP 97.9; O2SAT 96
[2016-10-23 05:46] VITALS: BP 110/72; PULSE 80; RESP 14; TEMP 99.6; O2SAT 92
[2016-10-23] MEDS: ESCITALOPRAM OXALATE 10 MG TAB PO SCH (08:45)
[2016-10-23] MEDS ORDERED: QUET1TAB7 PO (11:16)
[2016-10-23] MEDS ORDERED: ESCI10TA PO (11:16)
[2016-10-23] MEDS: QUEtiapine FUMARATE 25 MG TAB PO SCH (11:20)
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
== END 2016-10-23 16:10 | disposition home or self-care (01) | DRG 884 ==
LOC: H4EA 11:31 → H250 18:25
PROVIDERS: ADMIT Psychiatry & Neurology Psychiatry; ATTEND Psychiatry & Neurology Psychiatry
DX: F03.91 Unspecified dementia, unspecified severity, with behavioral disturbance (principal); S22.42XA Multiple fractures of ribs, left side, initial encounter for closed fracture; F05 Delirium due to known physiological condition; S27.321A Contusion of lung, unilateral, initial encounter; G93.89 Other specified disorders of brain; N39.0 Urinary tract infection, site not specified; J98.11 Atelectasis; Z91.14 Patient's other noncompliance with medication regimen; Y93.9 Activity, unspecified; Y92.9 Unspecified place or not applicable; I10 Essential (primary) hypertension; R29.6 Repeated falls; E86.0 Dehydration; B96.89 Other specified bacterial agents as the cause of diseases classified elsewhere; N28.9 Disorder of kidney and ureter, unspecified; F41.9 Anxiety disorder, unspecified; F39 Unspecified mood [affective] disorder; K59.00 Constipation, unspecified; M54.9 Dorsalgia, unspecified; K80.20 Calculus of gallbladder without cholecystitis without obstruction; Z91.19 Patient's noncompliance with other medical treatment and regimen; W19.XXXA Unspecified fall, initial encounter
CPT/HCPCS: 80048; 80053; 80061; 82948; 83036; 85027; J0696; J1200; J1630; J1815; J2270; J3480